=== PATIENT | male | born 1985 | race Caucasian/White ===

== ENCOUNTER 2019-06-26 17:20 | Emergency (ER) | payer OTHER ==
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
--- NOTE | 2019-06-26 18:06 | NUR ---
NO ANSWER WHEN CALLED TO TRIAGE
--- NOTE | 2019-06-26 18:17 | NUR ---
NO ANSWER WHEN CALLED TO TRIAGE.
== END 2019-06-26 18:19 | disposition left against medical advice (07) ==
LOC: ER 17:20
DX: R69 Illness, unspecified (principal)